=== PATIENT | male | born 1950 | race Caucasian/White ===

== ENCOUNTER → 2018-12-09 10:49 | Outpatient (CLI) | payer OTHER, SELFPAY ==
--- NOTE | 2018-12-09 10:54 | CA_ITS ---
APPROVED REPORT EXAM: Comprehensive 2D, Doppler, and color-flow Echocardiogram Promotions Officer: Merna Botello CRT Ht: 5 ft 8 in Wt: 235lbs BSA: 2.19 BP: 120/70 mmHg Indications: Chest Pain, Shortness of Breath, Obesity, Palpitations, Fatigue, CAD, Hyperlipidemia, Hypertension/HDD Left Ventricle Left atrium is mildly enlarged, left ventricle is normal size, mild concentric left ventricular hypertrophy, visually estimated ejection fraction 55% with no regional wall motion abnormality, grade 1 diastolic dysfunction seen with tissue Doppler evidence of raise left atrial pressure. Right Ventricle Right atrium and right ventricular normal size and contractility. Aortic Valve Aortic valve is minimally thickened and calcified, there is no aortic stenosis or aortic insufficiency. Mitral Valve Mitral valve is normal in structure and function Tricuspid Valve Tricuspid valve is normal in structure and function, there is mild tricuspid regurgitation noted, tricuspid regurgitation jet velocity is inadequate for cannulation of the right ventricular systolic function. Cannot exclude tricuspid valve vegetation. Pulmonic Valve Grossly normal Great Vessels Aortic root is normal size. Pericardium No significant pericardial effusion noted 2D Dimensions LVOT 2.10 cm (M/F) 1.5-2.5 M-Mode Dimensions RVDd 2.90 cm (0.9-2.6) LA Diam 3.80 cm (1.9-4.0) LVDd 5.60 cm (3.5-5.7) Ao Diam 4.10 cm (2.0-3.7) LVDs 4.10 cm (3.5-5.7) AV Cusp 2.40 cm (1.5-2.6) IVSd 2.00 cm (0.6-1.1) PWd 0.90 cm (0.6-1.1) EF (Teich) 51.80% FS 26.80% EDV (Teich) 154.00 mL ESV (Teich) 74.20 mL LV Diastology E/A Ratio 1.10 MED E' 6.63 (< 7 cm/sec) E'/MED E' Ratio 13.20 (>14) LAT E' 6.43 (<10 cm/sec) E/LAT E' Ratio 13.60 (>14) Aortic Valve AoV Peak Jose. 121.00 (50-130 cm/s) AO Peak GR. 6.00 mmHg Mitral Valve MV E Max Jose. 87.40 (40-130 cm/s) MV A Velocity 79.00 (40-130 cm/s) E/A Ratio 1.10 Pulmonary Valve WI End VMAX 173.00 cm/s PA Accel Time 162.00 (>120 msec) Tricuspid Valve TR P. Velocity 327.00 cm/s RAP Estimate 10.00 mmHg RVSP 53.00 mmHg Conclusion 1. Normal left ventricular size, preserved left ventricular systolic function, visually estimated ejection fraction 55% with no regional wall motion abnormality, grade 1 diastolic dysfunction seen with tissue Doppler evidence of raise left atrial pressure. Mild concentric left ventricular hypertrophy is also seen. 2. Mild mitral and tricuspid regurgitation 3. No significant pericardial effusion noted. Electronically signed by : Matheus Prado, 12/11/2018 13:29:27
== END ==
PROVIDERS: Visit Provider Orthopaedic Surgery
DX: I25.10 Atherosclerotic heart disease of native coronary artery without angina pectoris (principal)
CPT/HCPCS: 93306